=== PATIENT | female | born 1945 | race Caucasian/White ===

== ENCOUNTER 2018-01-02 15:08 | Emergency (ER) | payer MEDICARE ==
[~2018-01-02] VITALS: Ht 162.6 cm; Wt 75.0 kg
[2018-01-02 15:43] VITALS: BP 148/87
== END 2018-01-02 16:16 | disposition home or self-care (01) ==
LOC: ED 15:08
PROC: 2W3DX1Z Immobilization of Left Lower Arm using Splint (ICD-10-PCS; principal; 2018-01-02)
DX: S52.502A Unspecified fracture of the lower end of left radius, initial encounter for closed fracture (principal); W10.8XXA Fall (on) (from) other stairs and steps, initial encounter; Y92.029 Unspecified place in mobile home as the place of occurrence of the external cause